=== PATIENT | male | born 2000 | race Caucasian/White ===

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

== ENCOUNTER → 2023-08-23 | Outpatient (REF) ==
[~2023-08-23] MED LIST: IBUP-1022 PO
== END ==
LOC: M PLAIMG 10:19
PROVIDERS: ATTEND Internal Medicine
DX: R52 Pain, unspecified (principal)